=== PATIENT | female | born 1970 | race Caucasian/White ===

== ENCOUNTER 2017-01-26 05:50 | Emergency (ER) | payer BC ==
[2017-01-26 06:22] LABS: HEMOGLOBIN 14.5 gm/dl (12.3-15.3); RED BLOOD COUNT 4.87 M/UL (4.00-5.10); WHITE BLOOD COUNT 11.5 K/UL (4.5-11.0)
[2017-01-26 06:43] LABS: BUN/CREATININE RATIO 9 (0-10)
== END 2017-01-26 11:05 | disposition home or self-care (01) ==
LOC: ER1 05:50
PROVIDERS: Emergency Medicine
DX: R06.00 Dyspnea, unspecified (principal); R11.0 Nausea; R42 Dizziness and giddiness; I25.10 Atherosclerotic heart disease of native coronary artery without angina pectoris; I25.2 Old myocardial infarction; I10 Essential (primary) hypertension; F17.210 Nicotine dependence, cigarettes, uncomplicated; Z95.5 Presence of coronary angioplasty implant and graft
CPT/HCPCS: 71010; 80053; 82550; 82553; 83874; 84484; 85025; 93005; 99285